=== PATIENT | female | born 1950 ===

== ENCOUNTER 2017-12-05 20:22 | Emergency (ER) | payer MEDICARE, MEDICAID ==
[2017-12-05 20:50] VITALS: TEMP 98.6
[2017-12-05] MEDS ORDERED: Sodium Chloride 0.9% 1,000 ML IV STA (22:04)
[2017-12-05] MEDS ORDERED: DiphenhydrAMINE 50 mg/ml Inj IV STA (22:04)
[2017-12-05 22:31] LABS: BASO % 0.4 % (0.0-2.0); EOS # 0.5 K/uL (0.0-0.7); EOS % 4.5 % (0.0-4.0); HEMOGLOBIN 19.3 g/dL (12.0-16.0); LYMPH # 2.1 K/uL (1.0-4.3); LYMPH % 17.8 % (20.0-40.0); MEAN CELL VOLUME 87.2 fl (81.0-99.0); MEAN CORPUSCULAR HEMOGLOBIN 28.7 pg (27.0-31.0); MEAN PLATELET VOLUME 8.9 fl (7.2-11.7); MONO # 0.9 K/uL (0.0-0.8); MONO % 7.2 % (0.0-10.0); NEUT # 8.4 K/uL (1.8-7.0); NEUT % 70.1 % (50.0-75.0); NRBC % 0.1 % (0.0-0.0); RBC 6.73 Mil/uL (3.80-5.20); RED CELL DISTRIBUTION WIDTH 16.2 % (11.5-14.5)
[2017-12-05 23:00] LABS: BLOOD UREA NITROGEN 18 mg/dl (7-17)
[2017-12-05 23:01] LABS: ALB/GLOB RATIO 1.4 (1.0-2.1); ALBUMIN 4.3 g/dL (3.5-5.0); ALT/SGPT 28 U/L (9-52); AST/SGOT 33 U/L (14-36); CALCIUM 9.8 mg/dL (8.4-10.2); GFR NON-AFRICAN AMERICAN > 60
[2017-12-05 23:43] LABS: SQUAMOUS EPITHIAL < 1 /hpf (0-5); URINE BACTERIA RARE (<OCC); URINE BILIRUBIN NEGATIVE (NEGATIVE); URINE BLOOD SMALL (NEGATIVE); URINE CLARITY CLEAR (Clear); URINE COLOR STRAW (YELLOW); URINE GLUCOSE (UA) NEG (Normal); URINE LEUKOCYTE ESTERASE MOD Leu/uL (Negative); URINE PROTEIN NEGATIVE (NEGATIVE); URINE UROBILINOGEN 0.2-1.0 mg/dL (0.2-1.0)
[2017-12-05 23:51] VITALS: BP 148/74; PULSE 60; RESP 18; O2SAT 96
--- NOTE | 2017-12-06 00:06 | ED PDOC ---
HPI: Headache Time Seen by Provider: 12/05/17 21:56 Chief Complaint (Nursing): Dizziness/Lightheaded Chief Complaint (Provider): Dizziness/Lightheaded History Per: Patient History/Exam Limitations: no limitations Onset/Duration Of Symptoms: Intermittent Episodes (x3 days) Current Symptoms Are (Timing): Gone Now Additional Complaint(s): 67 year old female presents to ED with intermittent headaches, nausea and vertiginous dizziness for 3 days. Patient reports headaches are worse with positional changes. She attributes her symptoms to her blood pressure which she says "has been high". She denies any vomiting or further medical complaints. Patient was seen at a local Urgent Care earlier today and was given Tylenol and Zofran in visit. Upon arrival to ED, she states her symptoms have resolved. PMD:Dr. Cy Leung Past Medical History Reviewed: Historical Data, Nursing Documentation, Vital Signs Vital Signs: Last Vital Signs Temp 98.6 F 12/05/17 20:46 Pulse 60 12/05/17 23:49 Resp 18 12/05/17 23:49 BP 148/74 12/05/17 23:49 Pulse Ox 96 12/05/17 23:49 - Medical History PMH: No Chronic Diseases Other PMH: borederline DM - Surgical History Surgical History: No Surg Hx - Family History Family History: States: Unknown Family Hx - Social History Current smoker - smoking cessation education provided: No Alcohol: None Drugs: Denies - Immunization History Hx Tetanus Toxoid Vaccination: No Hx Influenza Vaccination: No Hx Pneumococcal Vaccination: No - Home Medications Home Medications: Ambulatory Orders Medication Instructions Recorded Meclizine [Antivert] 25 mg PO Q6 PRN #16 tab 12/05/17 Nitrofurantoin Macrocrystals 100 mg PO BID #14 cap 12/05/17 [Macrobid] - Allergies Allergies/Adverse Reactions: Allergies Allergy/AdvReac Type Severity Reaction Status Date / Time No Known Allergies Allergy Verified 12/05/17 20:46 Review of Systems ROS Statement: Except As Marked, All Systems Reviewed And Found Negative Gastrointestinal: Positive for: Nausea. Negative for: Vomiting Neurological: Positive for: Headache, Dizziness Physical Exam - Reviewed Nursing Documentation Reviewed: Yes Vital Signs Reviewed: Yes - Physical Exam Appears: Positive for: Well, Non-toxic, No Acute Distress Head Exam: Positive for: ATRAUMATIC, NORMAL INSPECTION, NORMOCEPHALIC Skin: Positive for: Normal Color Eye Exam: Positive for: Normal appearance, EOMI, PERRL ENT: Positive for: Normal ENT Inspection Neck: Positive for: Normal Cardiovascular/Chest: Positive for: Regular Rate, Rhythm. Negative for: Murmur Respiratory: Positive for: Normal Breath Sounds. Negative for: Respiratory Distress Extremity: Positive for: Normal ROM (upper/lower) Neurologic/Psych: Positive for: Alert (x3), industrial engineer II-XII (grossly intact), Oriented. Negative for: Motor/Sensory Deficits, Aphasia - Laboratory Results Result Diagrams: 12/05/17 22:20 12/05/17 22:20 - ECG O2 Sat by Pulse Oximetry: 96 (RA) Pulse Ox Interpretation: Normal Medical Decision Making Medical Decision Making: Initial Impression: 67 year old female with headache, nausea and vertiginous dizziness. Initial Plan: * Labs * Antivert 25mg PO * Benadryl 25mg IV * NS 1,000ml IV per 1,000mls/hr * Phenergan inj 25mg IVPB Time: 0008 --Labs reviewed: no significant clinical abnormality except for UA indicative for UTI. Patient continues to report stability for discharge. Counseling was provided and all questions were answered regarding diagnosis. There is agreement to discharge plan. Return if symptoms persist or worsen. Clinical Impression: Vertigo; UTI Scribe Attestation: Documented by Anita Cobb, acting as a scribe for Alberto Clay MD. Provider Scribe Attestation: All medical record entries made by the Scribe were at my direction and personally dictated by me. I have reviewed the chart and agree that the record accurately reflects my personal performance of the history, physical exam, medical decision making, and the department course for this patient. I have also personally directed, reviewed, and agree with the discharge instructions and disposition. Disposition - Clinical Impression Clinical Impression: Vertigo, UTI (urinary tract infection) - Patient ED Disposition Is Patient to be Admitted: No Counseled Patient/Family Regarding: Studies Performed, Diagnosis, Rx Given - Disposition Disposition: Routine/Home Disposition Time: 00:08 Condition: STABLE Prescriptions: Meclizine [Antivert] 25 mg PO Q6 PRN #16 tab PRN Reason: Dizziness Nitrofurantoin Macrocrystals [Macrobid] 100 mg PO BID #14 cap Instructions: Vertigo (a Type of Dizziness), Urinary Tract Infections in Adults Forms: [facility] (Cymro) Print Language: SLOV[place]
== END 2017-12-06 01:14 | disposition home or self-care (01) ==
LOC: H.ER 20:22
DX: R42 Dizziness and giddiness (principal); N39.0 Urinary tract infection, site not specified; E11.9 Type 2 diabetes mellitus without complications
CPT/HCPCS: 80053; 81003; 85025; 96360; 99285; J7030